=== PATIENT | female | born 1975 | race Two or more races ===

== ENCOUNTER 2019-06-16 19:51 | Emergency (ER) | payer MEDICAID ==
[~2019-06-16] VITALS: Ht 154.9 cm; Wt 62.6 kg
[2019-06-16 19:53] VITALS: BP 146/83
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
[2019-06-16] MEDS ORDERED: Ketorolac 30mg Inj IV ONE (20:15)
[2019-06-16] MEDS ORDERED: Morphine Sulfate 2mg/ml Inj(IV/IM USE ONLY) IVP ONE (20:15)
[2019-06-16 20:46] LABS: BASOPHILS % (AUTO) 1.4 % (0.0-2.0); EOSINOPHILS % (AUTO) 2.8 % (0.0-3.0); HEMATOCRIT 39.8 % (37.0-47.0); HEMOGLOBIN 14.2 G/DL (12.0-16.0); LYMPHOCYTES % (AUTO) 21.3 % (20.0-45.0); MEAN CORPUSCULAR VOLUME 84 FL (80-99); MONOCYTES % (AUTO) 6.4 % (1.0-10.0); PLATELET COUNT 294 K/UL (150-450); RED BLOOD COUNT 4.75 M/UL (4.20-5.40); RED CELL DISTRIBUTION WIDTH 10.2 % (11.6-14.8); WHITE BLOOD COUNT 9.1 K/UL (4.8-10.8)
[2019-06-16 20:59] LABS: ANION GAP 10 mmol/L (5-15); BLOOD UREA NITROGEN 12 mg/dL (7-18); CALCIUM 9.5 MG/DL (8.5-10.1); CARBON DIOXIDE 27 MMOL/L (21-32); CHLORIDE 104 MMOL/L (98-107); CREATININE 0.7 MG/DL (0.55-1.30); POTASSIUM 3.9 MMOL/L (3.5-5.1); SODIUM 141 MMOL/L (136-145)
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
[2019-06-16] MEDS ORDERED: IBUPROFEN600 MG ORAL (22:07)
[2019-06-16] MEDS ORDERED: ROBAXIN-750750 MG PO (22:07)
[2019-06-16] MEDS ORDERED: LIDODERM700 M1 TOPIC (22:07)
[2019-06-16 22:30] VITALS: BP 146/83
--- NOTE | 2019-06-16 22:30 | NUR ---
ER DISCHARGE NOTE: Patient is cleared to be discharged per ERMD, pt is aox4, on room air, with stable vital signs. pt was given dc and prescription instructions, pt was able to verbalize understanding, pt id band and iv site removed without complications. pt is able to ambulate with steady gait. pt took all belongings.
--- NOTE | 2019-06-17 09:48 | Diagnostic Imaging Report ---
Indication: Chest pain Technique: One view of the chest Comparison: none Findings: Lungs and pleural spaces are clear. Heart size is normal. Impression: No acute process
== END 2019-06-16 22:20 | disposition home or self-care (01) ==
LOC: EDBD 19:51 → EMR 20:10
DX: R07.9 Chest pain, unspecified (principal); S16.1XXA Strain of muscle, fascia and tendon at neck level, initial encounter; S39.012A Strain of muscle, fascia and tendon of lower back, initial encounter; V43.62XA Car passenger injured in collision with other type car in traffic accident, initial encounter; Y92.410 Unspecified street and highway as the place of occurrence of the external cause
CPT/HCPCS: 36415; 71045; 72125; 72128; 72131; 80048; 82553; 84484; 85025; 96374; 96375; J1885; J2270; Z7502; 99284